=== PATIENT | female | born 1945 | race Caucasian/White ===

== ENCOUNTER 2024-03-19 13:29 | Emergency (ER) | payer MEDICARE, OTHER, SELFPAY ==
[2024-03-19 13:48] VITALS: BP 112/61
[2024-03-19 14:19] LABS: Urine Albumin 1+ (Neg - Trace); Urine Bilirubin Negative (Negative); Urine Character Slightly Cloudy (Clear); Urine Color Yellow; Urine Glucose Negative (Negative); Urine Ketone 1+ (Negative); Urine Leukocyte 2+ (Negative); Urine Nitrite Positive (Negative); Urine Occult Blood 4+ (Negative); Urine Specific Gravity 1.015 (<1.030); Urine Urobilinogen Negative (Neg - 1+)
[2024-03-19 14:30] LABS: Hemoglobin 12.8 g/dL (12.0-16.0); Mean Corpuscular Hgb 31.3 pg (27.0-31.0); Mean Corpuscular Volume 97.8 fL (81.0-99.0); Mean Platelet Volume 9.6 fL (7.4-10.4); Platelet Count 268 10^3/uL (130-400); Red Blood Cell Count 4.09 10^6/uL (4.20-5.40); Red Cell Dist. Width 13.2 % (11.5-14.5); White Blood Cell Count 129.2 10^3/uL (4.8-10.8)
[2024-03-19 14:34] LABS: ALT (SGPT) 17 U/L (0-35); AST (SGOT) 27 U/L (14-36); Albumin 4.7 g/dl (3.5-5.0); Alkaline Phosphatase 42 U/L (38-126); Blood Urea Nitrogen 21 mg/dl (7-17); Calcium 9.3 mg/dl (8.4-10.2); Carbon Dioxide 22 mmol/L (22-30); Chloride 99 mmol/L (98-107); Glucose 132 mg/dl (70-99); Potassium 4.4 mmol/L (3.5-5.1); Sodium 135 mmol/L (135-145); eGFR 41.57
[2024-03-19 15:09] LABS: Urine Mucus Many; Urine Squamous Cell >30 /LPF (Few)
[2024-03-19 15:10] LABS: Urine Amorphous Seen
[2024-03-19 15:11] LABS: Urine Red Blood Cell 30-40 /HPF (0-2)
[2024-03-19 15:12] LABS: Urine Bacteria Many (Negative); Urine White Cell 90-100 /HPF (0-5)
[2024-03-19 15:13] LABS: % Basophils 0.1 % (0-2); % Immature Granulocytes 0.5 % (0-0.5); % Lymphocytes 85.4 % (20.5-51.1); % Monocytes 2.5 % (1.7-9.3); % Neutrophils 11.5 % (42.2-75.2); Absolute Basophils 0.1 10^3/uL (0-0.2); Absolute Eosinophils 0.1 10^3/uL (0-0.7); Absolute Immature Granulocytes 0.7 10^3/uL (0-0.05); Absolute Lymphocytes 110.3 10^3/uL (1.2-3.4); Absolute Monocytes 3.2 10^3/uL (0.1-0.6); Absolute Neutrophils 14.8 10^3/uL (1.4-6.5); Nucleated Red Blood Cells % 0 %
--- NOTE | 2024-03-19 16:27 | ED.GENMED ---
History of Present Illness
General
Chief Complaint: Urinary Symptoms
Source: patient
Exam Limitations: none
Time Seen by Provider: 03/19/24 16:26
Nursing documentation reviewed up to this point in time: agreed with
History of Present Illness
History of Present Illness:
78 yr. old female past medical history of leukemia presents to the ER for evaluation. Patient has a history of leukemia and is followed by [facility] and is currently untreated they are monitoring currently. She reports on Sunday 2 days ago she had
blood in her urine in the morning. Sunday, yesterday it occurred again as well as last night. Today however she felt very weak and nauseous she did have a fever of 101.6. She denies any dysuria. She denies any back pain or vomiting.
She is followed by DR Camara at [facility] .
Phy Exam
General Physical Exam
General Presentation: no apparent distress
General age: appears stated age
General Skin: warm and dry
General Habitus: normal
General Mental: alert
General Hydration: appears well hydrated
Cardiovascular Exam
Cardiovascular Exam: regular rate/rhythm, no murmur and normal peripheral pulses
Pulmonary Exam
Pulmonary Exam: lungs clear and no respiratory distress
Gastrointestinal Exam
Gastrointestinal Exam: non tender and soft
Neurological Exam
Neurological Exam: alert and oriented x3
Musculoskeletal Exam
Musculoskeletal Exam: full ROM
Skin Exam
Skin Exam: normal color and warm/dry
Psychiatric Exam
Psychiatric Exam: normal mood/affect
Sepsis
Sepsis Screening
Sepsis Assessment: Sepsis Ruled Out
Sepsis Screen
Sepsis Screen: Sepsis Ruled Out
Date: 03/19/24
Time: 19:30
Course
Orders/Labs/Results
Orders:
Orders
03/19/24 14:03
Complete Blood Count/With Diff Urgent
Comprehensive Metabolic Panel Urgent
Urinalysis Reflex To Culture Urgent
Date Specimen was Collected: 03/19/24
Time Specimen was Collected: 13:51
Urine Microscopic Reflex Cult Urgent
Urine Culture Urgent
ASUNCION Source: U
Specimen Description:
Date Specimen was Collected: 03/19/24
Time Specimen was Collected: 13:51
03/19/24 17:17
Lactate Level [Lactic Acid] Urgent
Blood Culture Q30M
ASUNCION Source: Blood/Venous
Specimen Description:
Blood Culture Q30M
ASUNCION Source: Blood/Venous
Specimen Description:
03/19/24 18:36
CefTRIAXone [Rocephin] 1,000 mg IV NOW STA
Abnormal Lab Results
03/19/24
14:03
WBC 129.2 H* 10^3/uL
(4.8-10.8)
RBC 4.09 L 10^6/uL
(4.20-5.40)
MCH 31.3 H pg
(27.0-31.0)
MCHC 32.0 L g/dL
(33.0-37.0)
Abs Immat Gran (auto) 0.7 H 10^3/uL
(0-0.05)
Absolute Neuts (auto) 14.8 H 10^3/uL
(1.4-6.5)
Absolute Lymphs (auto) 110.3 H 10^3/uL
(1.2-3.4)
Absolute Monos (auto) 3.2 H 10^3/uL
(0.1-0.6)
Neutrophils % 11.5 L %
(42.2-75.2)
Lymphocytes % 85.4 H %
(20.5-51.1)
BUN 21 H mg/dl
(7-17)
Creatinine 1.3 H mg/dL
(0.6-1.0)
Glucose 132 H mg/dl
(70-99)
Urine Ketones 1+ A
(Negative)
Ur Occult Blood Reflex 4+ A
(Negative)
Urine Nitrite (Reflex) Positive A
(Negative)
Leukocyte Esterase Rfl 2+ A
(Negative)
Urine RBC 30-40 A /HPF
(0-2)
Urine WBC (Reflex) 90-100 A /HPF
(0-5)
Urine Bacteria (Reflex) Many A
(Negative)
Urine Albumin (Reflex) 1+ A
(Neg - Trace)
03/19/24 14:03
03/19/24 14:03
Vital Signs
Initial and Last Documented VS:
Initial Vital Signs
Temp Pulse Resp BP Pulse Ox
99.5 F 82 16 112/61 95
03/19/24 13:48 03/19/24 13:48 03/19/24 13:48 03/19/24 13:48 03/19/24 13:48
Last Documented Vital Signs
Temp Pulse Resp BP Pulse Ox
99.5 F 74 19 144/63 95
03/19/24 13:48 03/19/24 19:01 03/19/24 19:01 03/19/24 19:00 03/19/24 18:30
Residential Roofer consulted with Physician
Residential Roofer consulted with physician?: Yes
Name of Physician Consulted: DR Huntley
MDM/Problems Addressed
MDM/Problems Addressed:
78 yr female with past medical history leukemia presents to the ER for evaluation. Patient is followed by [facility]u has not started treatment yet. Patient presents with hematuria did have fever with this denies any back pain. She was nauseous
but no vomiting. She presents awake alert no acute distress she is nontachycardic nontachypneic temp is 99.5. Her white count is 129.2.
Her urine does appear infected. Her platelets are normal, her BUN and creatinine are minimally elevated. Her lactic is normal.
Case reviewed with ED physician.
Patient is nontoxic and feels well enough to go home. She is nontachycardic temp was 99.5 on arrival however is 98.2 on reexam.
Case discussed with Dr. Hogan, fellow on-call for [facility]. I did review history and lab work here in the ER. She is okay with patient being discharged antibiotics. She does report patient's last white count several months ago was 106,000.
Patient was given 1 dose of Rocephin here in the ER will DC on cefdinir.
Discussed close outpatient follow-up with family doctor to return if any worsening of symptoms.
Chronic conditions affecting care:
leukemia
*Pulse Oximetry
Patient hypoxic: no
*Critical Care Note
Total Time (30-74mins, 75-104mins- exclusive of procedures): Not Applicable
ED Attending Note
-
Portions of this chart may have been created with voice recognition software.� Occasional wrong word or��sound alike� substitutions may have occurred due to the inherent limitations of voice recognition software.
Discharge Plan
Departure
Patient Disposition: Home (Routine Discharge)
Date of Disposition: 03/19/24
Time of Disposition: 19:21
Patient with high blood pressure during this ER visit?: Yes
Condition: Fair
Covid-19: Not Applicable
Discharge Problem:
Acute UTI
Instructions: Urinary Tract Infection, Adult (DC), BLOOD PRESSURE
Prescriptions:
New
cefdinir 300 mg capsule
300 mg PO BID Qty: 14 0RF
Referrals:
Cole Choe DO [Family Provider] -
Activity Restrictions/Additional Instructions:
As discussed you have an obvious urinary tract infection. You are given 1 dose of IV antibiotics and a prescription for antibiotic was sent to your pharmacy to take twice a day starting tomorrow. Be sure to stay well-hydrated. Your kidney
function was mildly elevated please have these numbers rechecked by your family doctor. Follow-up with your family doctor in the next of days for reevaluation. Return if any worsening of symptoms including increased blood in your urine, fever
chills nausea vomiting or any further concerns. In addition please follow-up with your oncologist please give them a call tomorrow to schedule an appointment.
Interventions
Interventions:
*Risk Screen - Suicide Last Done: 03/19/24 13:48
*General Assessment Last Done: 03/19/24 16:50
*Neglect/Abuse Screening Last Done: 03/19/24 13:48
ED- Fall Risk Assessment Last Done: 03/19/24 16:50
*ED COVID-19 Vaccine History Last Done: 03/19/24 16:50
ED-Female Genitourinary Assessment Last Done: 03/19/24 16:50
Discharge Date and Time
Print Language: OCCITAN
[2024-03-19 16:50] VITALS: BMI 31.2
[2024-03-19 17:00] VITALS: BP 155/69
[2024-03-19 17:44] LABS: Lactic Acid 0.8 mmol/L (0.7-2.0)
[2024-03-19 18:00] VITALS: BP 150/61
[2024-03-19] MEDS: ROCEPHIN 1000 MG IV (18:52)
[2024-03-19 18:55] VITALS: BP 114/88
[2024-03-19 19:00] VITALS: BP 144/63
== END 2024-03-19 19:53 | disposition home or self-care (01) ==
LOC: EMR 13:29
PROVIDERS: Emergency Medicine; Nurse Practitioner; EMERGENCY PHYSICIAN Student in an Organized Health Care Education/Training Program; FAMILY PHYSICIAN Family Medicine
DX: N39.0 Urinary tract infection, site not specified (principal); C95.90 Leukemia, unspecified not having achieved remission
CPT/HCPCS: 99284; 96374; 80053; 81003; 81015; 83605; 85025; 87040; 87077; 87086